=== PATIENT | female | born 1955 | race Caucasian/White ===

== ENCOUNTER 2016-07-07 07:15 | Emergency (ER) | payer OTHER ==
[~2016-07-07] VITALS: Ht 160 cm; Wt 96.1 kg
[~2016-07-07 07:15] MED LIST: ACTOS30 MG PO; CELEBREX200 MG PO; DIABETA,MICRONAS5 MG PO; DIOVAN160 MG PO; FUROSEMIDE40 MG PO; KEFLEX500 MG PO; METOLAZONE2.5 MG PO; MICRO-K8 ME2 PO; SPIRIVA1 INHALATI IH; SPIRONOLACTONE25 MG PO; Vicodin,Lortab 5/500 PO
[2016-07-07 07:55] LABS: HEMATOCRIT 46.5 % (36.0-46.0); MCH 29.9 PG (29.0-34.0); MCHC 32.5 G/DL (30.0-36.0); MCV 92.1 FL (83-99); RBC DIS.WIDTH-CV 13.2 % (11.8-14.6); RBC DIS.WIDTH-SD 44.5 % (39-53); RED BLOOD COUNT 5.05 M/uL (3.80-5.20); WHITE BLOOD COUNT 18.2 K/uL (4.1-10.2)
[2016-07-07 08:02] LABS: MEAN PLAT.VOLUME 11.1 uM^3 (9.5-12.4); PLATELET COUNT 289 K/uL (156-360)
[2016-07-07 08:16] LABS: CHLORIDE 97 mEq/L (99-109); POTASSIUM 3.4 mEq/L (3.7-5.4); SODIUM 141 mEq/L (136-147)
[2016-07-07 08:18] LABS: GLUCOSE 204 mg/dL (70-99)
[2016-07-07 08:20] LABS: ANION GAP 15 MEQ/L (2-14)
[2016-07-07 08:22] LABS: ALKALINE PHOSPHATASE 93 IU/L (3-129); GFR ESTIMATE (CALCULATED) > 59 mL/min/
[2016-07-07 08:23] LABS: UREA NITROGEN (BUN) 26 mg/dL (9-23)
[2016-07-07 08:24] LABS: TROP-I INTERPRETATION NEGATIVE; TROPONIN-I < 0.01 ng/mL (0.0-0.30)
[2016-07-07 08:25] LABS: LIPASE 24 U/L (1.0-51.0)
[2016-07-07 08:54] LABS: TOTAL BILIRUBIN 0.4 mg/dL (0.0-1.0)
[2016-07-07] MEDS ORDERED: ZOFRAN ODT4 MG PO (11:27)
[2016-07-07] MEDS ORDERED: BENTYL20 MG PO (11:27)
[2016-07-07] MEDS ORDERED: PERCOCET 5/31 TABLET PO (11:27)
[2016-07-07 12:00] VITALS: BP 148/66
== END 2016-07-07 12:13 | disposition home or self-care (01) ==
LOC: EME 07:15
PROVIDERS: Physician Assistant
DX: R10.9 Unspecified abdominal pain (principal); R16.0 Hepatomegaly, not elsewhere classified; Z98.84 Bariatric surgery status; J45.909 Unspecified asthma, uncomplicated; I10 Essential (primary) hypertension; F17.200 Nicotine dependence, unspecified, uncomplicated
CPT/HCPCS: 71020; 74177; 80053; 81003; 83690; 84484; 85027; 93005; 99281; 99285; J2270; J2405; J3010; J7030